=== PATIENT | female | born 1975 | race Caucasian/White ===

== ENCOUNTER → 2017-06-06 | Outpatient (CLI) | payer MEDICAID, SELFPAY | PROVIDERS: Visit Provider Internal Medicine Cardiovascular Disease | DX: I10 Essential (primary) hypertension (principal); E11.9 Type 2 diabetes mellitus without complications | CPT/HCPCS: 36415; 80048 ==

== ENCOUNTER → 2018-01-02 16:16 | Outpatient (CLI) | payer MEDICAID, SELFPAY ==
--- NOTE | 2018-01-02 16:19 | MM_ITS ---
MM Dig screening mamm BI w/CAD CAD Screening COMPARISON: Digital mammograms with CAD 07/26/2014 and post mammotome biopsy left mammogram 10/20/2014 INDICATION: There is no personal or family history of breast cancer. The previous biopsy left breast revealed benign fibrocystic changes including sclerosing adenosis TECHNIQUE: Standard CC and MLO images were obtained. R2 CAD reviewed. FINDINGS: Moderate diffuse fiber glandular densities are seen in both breasts. Again noted is a nodular density left breast at the site of the previous biopsy and there are couple of associated microcalcifications at this site and biopsy clip there is no new or suspicious lesion in either breast and there are no suspicious microcalcifications.. IMPRESSION: Moderate diffuse breast density with minimal post biopsy changes left breast and no suspicious lesion seen BI-RADS Category: 2 Benign Finding(s) RECOMMENDED FOLLOW-UP: 1YR - 1 YEAR FOLLOW-UP (A letter has been sent to the patient regarding results of the study.)
== END ==
PROVIDERS: PCP Nurse Practitioner Family; Visit Provider Nurse Practitioner Family
DX: Z12.31 Encounter for screening mammogram for malignant neoplasm of breast (principal)
CPT/HCPCS: 77067

== ENCOUNTER → 2018-11-17 13:26 | Outpatient (CLI) | payer MEDICAID, SELFPAY ==
--- NOTE | 2018-11-17 13:28 | CA_ITS ---
PROCEDURE: 2-D M-mode and color Doppler study INDICATIONS FOR THE TEST: Chest pain COPD+ Heart Murmur Tobacco Smoking+ Palpitations Fatigue Syncope Edema Hypertension+Diabetes Mellitus+ Rheumatic Fever SOB ENNIS+Obesity Hyperlipidemia+ Family History HD Additional History ABN EKG, FORMER SUBSTANCE ABUSE PATIENT INFORMATION HEIGHT: 66 WEIGHT:147/56 GENDER: Female B/P:270 2-D/M-MODE INTERPRETATION: 2-D MEASUREMENTS OBSERVED VALUES IN CMS Right Ventricular Dimension (RVDd) 1.7 Interventricular Septum (Thickness)(IVsd) 1.3 Left Ventricular Internal Dimensions(LVIDd) 5.4 Left Ventricular Posterior Wall (Thickness)(LVPWd) 1.0 Aortic Root 1.9 Aortic Cusp Separation Left Atrial Dimensions (LAD) 3.9 2D 1. Left Atrium is mildly enlarged, left ventricle is normal size, mild concentric left ventricular hypertrophy, visually estimated ejection fraction 55% with no regional wall motion abnormality. 2. The right atrium and right ventricle are normal size and contractility. 3. The aortic valve is minimally thickened and fibrosed. 4. The mitral and tricuspid valve leaflets are minimally thickened. 5. The pulmonic valve is poorly present. 6. No significant pericardial effusion noted. DOPPLER INTERROGATION: Doppler interrogation of the aortic, mitral and tricuspid valvular presence of mild mitral and tricuspid regurgitation, tricuspid regurgitation jet velocity is inadequate for calculation of the right ventricular systolic pressure, diastolic parameters are inconclusive. CONCLUSION: 1. Technically difficult study because of the patient's factor and poor acoustic windows 2. Mildly enlarged left atrium, normal left ventricular size, mild concentric left ventricular hypertrophy, visually estimated ejection fraction 55% with no obvious regional wall motion abnormality, diastolic parameters are inconclusive. 3. Mild mitral and tricuspid regurgitation 4. No significant pericardial effusion noted.
[2018-11-17 15:31] VITALS: PULSE 88; PULSE 90
== END ==
PROVIDERS: PCP Nurse Practitioner Family; Visit Provider Urology
DX: R06.00 Dyspnea, unspecified (principal); E11.8 Type 2 diabetes mellitus with unspecified complications; E78.5 Hyperlipidemia, unspecified; I11.9 Hypertensive heart disease without heart failure; R60.9 Edema, unspecified; F17.200 Nicotine dependence, unspecified, uncomplicated; Z79.4 Long term (current) use of insulin
CPT/HCPCS: 93306; 94060; 94640; 94726; 94729

== ENCOUNTER → 2018-12-05 13:08 | Outpatient (CLI) | payer MEDICAID, SELFPAY | PROVIDERS: PCP Nurse Practitioner Family; Visit Provider Urology | DX: G47.33 Obstructive sleep apnea (adult) (pediatric) (principal); I10 Essential (primary) hypertension; R06.83 Snoring; R40.0 Somnolence; R53.83 Other fatigue | CPT/HCPCS: G0399 ==

== ENCOUNTER 2018-12-10 08:00 | Outpatient (RCR) | payer MEDICAID, SELFPAY | END 2019-01-13 14:39 | disposition home or self-care (01) | LOC: PT.CARL 08:00 | PROVIDERS: Visit Provider Nurse Practitioner Family | DX: M54.5 Low back pain (principal) | CPT/HCPCS: 97012; 97110; 97140; 97163 ==

== ENCOUNTER → 2019-03-05 12:46 | Outpatient (CLI) | payer MEDICAID, SELFPAY ==
--- NOTE | 2019-03-05 | CA_ITS ---
APPROVED REPORT Bilateral Lower Extremity Venous Study for DVT. Thinner Sprayer: VINICIUS Indications Current Smoker Edema left lower extremity x 1 month. No known trauma. Risk Factors Current Smoker Medications Aspirin 81 mg daily Vein Imaging CFV (L): compressive, spontaneous, phasic, augmentation FEM (L): compressive, spontaneous, phasic, augmentation POP (L): compressive, spontaneous, phasic, augmentation PTV (L): Compressible GSV (L): compressive, spontaneous, phasic, augmentation SSV (L): Compressible Peroneals (L):Compressible GAS (L): Compressible Conclusion Negative for DVT Electronically signed by : Doroteo De La Rosa MD 03/05/2019 16:48:44
== END ==
PROVIDERS: PCP Nurse Practitioner Family; Visit Provider Nurse Practitioner Family
DX: M79.662 Pain in left lower leg (principal)
CPT/HCPCS: 93971

== ENCOUNTER → 2019-10-28 10:53 | Outpatient (CLI) | payer MEDICAID, SELFPAY ==
--- NOTE | 2019-10-28 10:56 | MM_ITS ---
PROCEDURE: MM DIG SCREENING MAMM BI W/CAD Digital Breast Tomosynthesis Included CLINICAL INDICATION: SCREENING There is no personal or family history of breast cancer. There have been previous biopsies on each breast for benign disease. COMPARISON: DMSB DIG MAMM-SCREEN FLORECITA from 07/26/2014 DMDXUL DIG MAMM-DX UNI-LT from 10/20/2014 [facility] MM Dig screening mamm BI w/CAD from 01/02/2018 TECHNIQUE: Standard CC and MLO images and 3D Tomosynthesis was obtained. R2 CAD reviewed. FINDINGS: Moderate diffuse fibroglandular densities are seen throughout both breasts. A couple of benign-appearing microcalcifications left breast. There is a biopsy clip left breast adjacent to the fibroadenoma which was biopsied. There is no new or suspicious lesion in either breast and no suspicious microcalcifications. IMPRESSION: Moderate diffuse breast density with no suspicious lesions seen BI-RAD Category: 2 Benign Finding(s) FOLLOW-UP: 1YR 1 Year Follow-up (A letter has been sent to the patient regarding results of the study.) Dictated by: Dr. Romulo Roy MD 10/30/2019 15:[address] Romulo Roy MD in [place] 10/30/2019 15:16
== END ==
PROVIDERS: PCP Nurse Practitioner Family; Visit Provider Nurse Practitioner Family
DX: Z12.31 Encounter for screening mammogram for malignant neoplasm of breast (principal)
CPT/HCPCS: 77063; 77067

== ENCOUNTER → 2020-11-24 18:13 | Outpatient (CLI) | payer MEDICAID, SELFPAY ==
[2020-11-24 18:20] LABS: Basophils # 0.1 K/mm3 (0-0.2); Basophils % 0.6 % (0.1-2.0); Eosinophils # 0.2 K/mm3 (0.0-0.4); Eosinophils % 1.9 % (0.1-12.0); Hemoglobin 13.8 g/dL (12.2-16.2); Lymphocytes # 3.2 K/mm3 (0.7-4.5); Lymphocytes % 30.1 % (10-50); Mean Corpuscular HGB Conc 32.9 g/dL (31.8-35.4); Mean Corpuscular Volume 85.3 fl (81-99); Mean Platelet Volume 10.2 fl (7.4-10.4); Monocytes # 0.5 K/mm3 (0.1-1.0); Monocytes % 4.7 % (1.7-9.3); Neutrophils # 6.6 K/mm3 (1.8-7.8); Neutrophils % 62.7 % (37.0-80.0); Platelet Count 211 K/mm3 (142-424); Red Blood Count 4.92 M/mm3 (4.20-5.40); Red Cell Distribution Width 15.3 % (11.5-17.5); White Blood Count 10.5 K/mm3 (4.8-10.8)
[2020-11-24 18:30] LABS: Chloride 101 mmol/L (98-107); Potassium 4.5 mmoL/L (3.5-5.1); Sodium 137 mmol/L (136-145)
[2020-11-24 18:33] LABS: Alanine Aminotransferase 40 U/L (12-78); Albumin Level 4.4 g/dl (3.5-5.0); Albumin/Globulin Ratio 1.7 (1.1-1.8); Alkaline Phosphatase 143 U/L (38-126); Anion Gap 12.5 mEq/L (5-15); Aspartate Amino Transferase 73 U/L (14-36); Bilirubin,Total 0.3 mg/dl (0.2-1.3); Blood Urea Nitrogen 4 mg/dl (7-17); Carbon Dioxide 28 mmol/L (22.0-30.0); Cholesterol 169 mg/dl (140-200); Estimated Glomerular Filt Rate 132 ml/min (>60); GFR (African American) 160 ML/MIN (>60); Globulin 2.6 g/dL (1.3-3.2); Triglycerides 272 mg/dl (30-150); VLDL Cholesterol 54 mg/dL (0-40)
[2020-11-24 18:34] LABS: Calcium 8.5 mg/dl (8.4-10.2); Chol/HDL Ratio 3.9 (1-3.5); Glucose 230 mg/dl (74-100); HDL Cholesterol 43 mg/dl (40-60)
[2020-11-24 18:44] LABS: Direct LDL Cholesterol 100.78 mg/dL (100-129)
[2020-11-24 19:03] LABS: Hemoglobin A1C 8.9 % (4.0-6.0)
== END ==
PROVIDERS: Visit Provider Internal Medicine Adolescent Medicine
DX: E11.9 Type 2 diabetes mellitus without complications (principal); E78.2 Mixed hyperlipidemia; E03.9 Hypothyroidism, unspecified; Z79.84 Long term (current) use of oral hypoglycemic drugs
CPT/HCPCS: 80053; 80061; 83036; 84443; 85025

== ENCOUNTER → 2021-03-07 08:06 | Outpatient (CLI) | payer MEDICAID, SELFPAY ==
[2021-03-07 08:55] LABS: Chloride 106 mmol/L (98-107); Potassium 4.1 mmoL/L (3.5-5.1); Sodium 139 mmol/L (136-145)
[2021-03-07 08:57] LABS: Alanine Aminotransferase 30 U/L (12-78); Alkaline Phosphatase 119 U/L (38-126); Aspartate Amino Transferase 62 U/L (14-36); Bilirubin,Total 0.2 mg/dl (0.2-1.3); Blood Urea Nitrogen 4 mg/dl (7-17); Estimated Glomerular Filt Rate 107 ml/min (>60); GFR (African American) 129 ML/MIN (>60)
[2021-03-07 08:58] LABS: Albumin Level 3.8 g/dl (3.5-5.0); Albumin/Globulin Ratio 1.5 (1.1-1.8); Anion Gap 14.1 mEq/L (5-15); Calcium 8.8 mg/dl (8.4-10.2); Carbon Dioxide 23 mmol/L (22.0-30.0); Chol/HDL Ratio 5.4 (1-3.5); Cholesterol 204 mg/dl (140-200); Globulin 2.6 g/dL (1.3-3.2); Glucose 178 mg/dl (74-100); HDL Cholesterol 38 mg/dl (40-60); Total Protein,Serum 6.4 g/dl (6.3-8.2)
[2021-03-07 09:01] LABS: Triglycerides 403 mg/dl (30-150)
[2021-03-07 09:09] LABS: Direct LDL Cholesterol 120.11 mg/dL (100-129)
[2021-03-07 09:29] LABS: Thyroid Stimulating Hormone 4.53 uIU/mL (0.465-4.68)
[2021-03-07 10:05] LABS: Hemoglobin A1C 7.2 % (4.0-6.0)
== END ==
PROVIDERS: Visit Provider Internal Medicine Adolescent Medicine
DX: E11.9 Type 2 diabetes mellitus without complications (principal); E03.9 Hypothyroidism, unspecified; E78.2 Mixed hyperlipidemia
CPT/HCPCS: 80053; 80061; 83036; 84443

== ENCOUNTER → 2022-06-25 06:34 | Outpatient (CLI) | payer MEDICAID, SELFPAY ==
[2022-06-25 18:28] LABS: Microalbumin/Creatinine Ratio 31.1
[2022-06-25 18:31] LABS: Creatinine,Urine Random 210 mg/dL (Not Estab.)
== END ==
PROVIDERS: PCP Family Medicine; Visit Provider Family Medicine
DX: E11.9 Type 2 diabetes mellitus without complications (principal); Z79.84 Long term (current) use of oral hypoglycemic drugs
CPT/HCPCS: 82043; 82570; 83036

== ENCOUNTER → 2023-05-27 23:36 | Outpatient (CLI) | payer MEDICAID, SELFPAY ==
[2023-05-27 17:23] LABS: Alanine Aminotransferase 51 U/L (12-78); Albumin Level 4.6 g/dl (3.5-5.0); Albumin/Globulin Ratio 1.4 (1.1-1.8); Alkaline Phosphatase 168 U/L (38-126); Anion Gap 14.7 mEq/L (5-15); Aspartate Amino Transferase 78 U/L (14-36); Basophils # 0.1 K/mm3 (0-0.2); Basophils % 0.4 % (0.1-2.0); Bilirubin,Total 0.4 mg/dl (0.2-1.3); Blood Urea Nitrogen 8 mg/dl (7-17); Calcium 9.9 mg/dl (8.4-10.2); Carbon Dioxide 25 mmol/L (22.0-30.0); Chloride 101 mmol/L (98-107); Chol/HDL Ratio 4.7 (1-3.5); Cholesterol 228 mg/dl (140-200); Eosinophils # 0.2 K/mm3 (0.0-0.4); Eosinophils % 1.8 % (0.1-12.0); Estimated Glomerular Filt Rate 106 ml/min (>60); GFR (African American) 128 ML/MIN (>60); Globulin 3.2 g/dL (1.3-3.2); Glucose 180 mg/dl (74-100); HDL Cholesterol 49 mg/dl (40-60); Hematocrit 44.8 % (37.0-47.0); Hemoglobin 15.4 g/dL (12.2-16.2); Lymphocytes # 3.7 K/mm3 (0.7-4.5); Lymphocytes % 34.2 % (10-50); Mean Corpuscular HGB Conc 34.4 g/dL (31.8-35.4); Mean Corpuscular Volume 87.2 fl (81-99); Mean Platelet Volume 11.1 fl (7.4-10.4); Monocytes # 0.5 K/mm3 (0.1-1.0); Monocytes % 4.2 % (1.7-9.3); Neutrophils # 6.4 K/mm3 (1.8-7.8); Neutrophils % 59.5 % (37.0-80.0); Platelet Count 223 K/mm3 (142-424); Potassium 4.7 mmoL/L (3.5-5.1); Red Blood Count 5.14 M/mm3 (4.20-5.40); Red Cell Distribution Width 14.2 % (11.5-17.5); Sodium 136 mmol/L (136-145); Total Protein,Serum 7.8 g/dl (6.3-8.2); White Blood Count 10.8 K/mm3 (4.8-10.8)
[2023-05-27 17:32] LABS: Triglycerides 600 mg/dl (30-150)
[2023-05-27 17:34] LABS: Direct LDL Cholesterol 114.86 mg/dL (100-129)
[2023-05-27 17:54] LABS: Hemoglobin A1C 10.4 % (4.0-6.0); Thyroid Stimulating Hormone 2.36 uIU/mL (0.465-4.68)
[2023-05-29 11:24] LABS: HIV Screen 4th Generation wRfx Non Reactive (Non Reactive)
== END ==
PROVIDERS: PCP Nurse Practitioner Family; Visit Provider Nurse Practitioner Family
DX: Z00.00 Encounter for general adult medical examination without abnormal findings (principal); E03.9 Hypothyroidism, unspecified; I10 Essential (primary) hypertension; E11.9 Type 2 diabetes mellitus without complications; Z11.4 Encounter for screening for human immunodeficiency virus [HIV]; Z79.84 Long term (current) use of oral hypoglycemic drugs; Z72.0 Tobacco use
CPT/HCPCS: 80053; 80061; 83036; 84443; 85025; 86703; G0432

== ENCOUNTER → 2023-06-12 11:19 | Outpatient (CLI) | payer MEDICAID, SELFPAY ==
--- NOTE | 2023-06-12 11:23 | MM_ITS ---
PROCEDURE INFORMATION: Exam: MG Bilateral Screening 3D Mammography Exam date and time: 06/12/2023 11:14 AM Age: 48 years old Clinical indication: Screening mammogram TECHNIQUE: Imaging protocol: Bilateral Screening tomosynthesis and 2D mammography including computer-aided detection (CAD) when performed. COMPARISON: 1. MG MM DIG SCREENING MAMM BI W/CAD 10/28/2019 10:57 AM 2. MG [facility] MM Dig screening mamm BI w/CAD 01/02/2018 4:29 PM 3. MG DMDXUL DIG MAMM-DX UNI-LT 10/20/2014 2:54 PM 4. MG DMSB DIG MAMM-SCREEN FLORECITA 07/26/2014 9:39 AM FINDINGS: MAMMOGRAPHY: Breast composition: There are scattered areas of fibroglandular density. Mass: 1.1 cm mass within the slightly lower slightly outer left middle 1/3 should be further assessed with spot views in CC/MLO projection. Ultrasound should also be performed. 0.9 cm mass within the lower inner anterior right breast should be further assessed with spot views in CC/MLO projection. Ultrasound should also be performed. 0.8 cm mass within the slightly upper slightly inner posterior right breast should be further assessed with spot views in CC/MLO projection. Ultrasound should also be performed. Calcifying upper outer left breast mass is unchanged Architectural distortion: No new or suspicious architectural distortion. Calcifications: No new or suspicious calcifications are present Asymmetric density: No new or suspicious asymmetric density is present Skin thickening: None. Axillary adenopathy: None. IMPRESSION: 1. 1.1 cm mass within the slightly lower slightly outer left middle 1/3 should be further assessed with spot views in CC/MLO projection. Ultrasound should also be performed. 2. 0.9 cm mass within the lower inner anterior right breast should be further assessed with spot views in CC/MLO projection. Ultrasound should also be performed. 3. 0.8 cm mass within the slightly upper slightly inner posterior right breast should be further assessed with spot views in CC/MLO projection. Ultrasound should also be performed. ASSESSMENT: BI-RADS category 0: Incomplete-need additional imaging evaluation
== END ==
LOC: RAD 11:20
PROVIDERS: PCP Nurse Practitioner Family; Visit Provider Nurse Practitioner Family
DX: Z12.31 Encounter for screening mammogram for malignant neoplasm of breast (principal)
CPT/HCPCS: 77063; 77067

== ENCOUNTER 2023-08-12 09:32 | Outpatient (CLI) | payer MEDICAID, SELFPAY ==
--- NOTE | 2023-08-12 09:33 | CT_ITS ---
FINAL REPORT TECHNIQUE: Thin section axial images were obtained through the lungs using a low-dose technique per lung cancer screening protocol. Reconstruction images were obtained using the axial data. Exam was performed using dose reduction technique. CLINICAL HISTORY: lung cancer screening current smoker 1.5ppd x35 years COMPARISON: None FINDINGS: CTDLvol: 2.9 DLP: 100.29 Current smoker, 48-year-old female 52 pack year history Lungs: No acute pulmonary abnormality. No suspicious nodules. Lymph nodes: No thoracic lymphadenopathy. Mediastinum: Heart size is normal. Pleura/pericardium: No pleural or pericardial effusion. Other: There is a left breast nodule measuring 12 mm in size. This is responsible for the S designation. IMPRESSION: No suspicious pulmonary nodule or mass. Left breast nodule measuring 12 mm in size. Recommend correlation with mammography for further evaluation. Lung RADS: 1S, for left breast nodule. Recommendation: 12-month follow-up LDCT and correlation with mammography for further evaluation of left breast nodule. Reviewed, Interpreted and Dictated by Buffy Rao MD Transcribed by Kylie Cárdenas Authenticated and [facility]
--- NOTE | 2023-08-12 10:07 | US_ITS ---
PROCEDURE INFORMATION: Exam: US Right Breast, Complete US Left Breast, Complete MG Bilateral Diagnostic Breast Tomosynthesis Exam date and time: 08/12/2023 10:27 AM Age: 48 years old Clinical indication: Patient recalled on the basis of a screening mammogram for further evaluation; Bilateral breasts; masses TECHNIQUE: Imaging protocol: Complete ultrasound of all four quadrants of the right breast and the retroareolar regions, including ultrasound of the axilla when performed. Complete ultrasound of all four quadrants of the left breast and the retroareolar regions, including ultrasound of the axilla when performed. Bilateral Diagnostic tomosynthesis and 2D mammography including computer-aided detection (CAD) when performed. Unilateral or bilateral exam. COMPARISON: MG MM DIG SCREENING MAMM BI W/CAD 06/12/2023 11:14 AM FINDINGS: MAMMOGRAPHY: Digital diagnostic spot compression views of the left lower outer quadrant demonstrates a persistent 1.0 cm mass. Persistent 0.9 cm mass is noted in the superficial aspect of the anterior right lower inner quadrant. 0.8 cm persistent mass lesion is noted in the upper inner posterior right breast ULTRASOUND: Sonographic images of both breasts including the retroareolar regions, all 4 quadrants and the axilla were obtained. Partially calcified fibroadenoma in the left 1 o'clock axis 3 cm from the nipple measures 1.5 x 1.1 x 1.1 cm. 1.1 x 0.6 x 0.5 cm well-circumscribed uniformly hypoechoic ovoid solid mass in the left 4 o'clock axis 3 cm from the nipple most closely corresponds to the mass on mammography. In the left 2 o'clock retroareolar region is a bilobed well-circumscribed hypoechoic solid mass measuring 1.2 x 1.2 x 0.6 cm not well seen on mammography. Minimal subcentimeter cystic change is noted bilaterally. No solid masses in the right breast. The 2 masses on mammography in the right breast are not seen on sonography. No architectural distortion or acoustical shadowing. No skin thickening or axillary adenopathy. IMPRESSION: 1. Mass in the left lower outer quadrant on mammography corresponds to a probably benign solid mass on sonography. Additional solid mass in the left 2 o'clock retroareolar region. Both masses likely reflect benign fibroadenomas. 2. Mammographically detected superficial subcentimeter right lower inner quadrant mass and posterior right upper inner subcentimeter mass are not seen on sonography but are likely benign in etiology. 3. A six-month follow-up diagnostic right mammogram and targeted left breast ultrasound are recommended to ensure stability of bilateral probably benign masses ASSESSMENT: BI-RADS Category 3: Probably benign
== END 2023-08-12 23:59 ==
PROVIDERS: PCP Nurse Practitioner Family; Visit Provider Nurse Practitioner Family
DX: F17.200 Nicotine dependence, unspecified, uncomplicated (principal); Z12.2 Encounter for screening for malignant neoplasm of respiratory organs; R92.8 Other abnormal and inconclusive findings on diagnostic imaging of breast
CPT/HCPCS: 71271; 76641; 77062; 77066; G0279

== ENCOUNTER 2024-02-27 10:13 | Outpatient (CLI) | payer MEDICAID, SELFPAY ==
--- NOTE | 2024-02-27 10:20 | MM_ITS ---
PROCEDURE INFORMATION: Exam: US Left Breast, Complete MG Right Diagnostic Breast Tomosynthesis Exam date and time: 02/27/2024 10:30 AM Age: 49 years old Clinical indication: Short-term radiographic followup; mammographically detected right breast masses and sonographically detected left breast masses TECHNIQUE: Imaging protocol: Complete ultrasound of all four quadrants of the left breast and the retroareolar regions, including ultrasound of the axilla when performed. Right Diagnostic tomosynthesis and 2D mammography including computer-aided detection (CAD) when performed. Unilateral or bilateral exam. COMPARISON: US BREAST LT COMPLETE 08/12/2023 10:39 AM FINDINGS: MAMMOGRAPHY: Breast composition: There are scattered areas of fibroglandular density. Breast mammogram findings: There is no stellate mass, architectural distortion or suspicious microcalcifications to suggest malignancy. Previously noted superficial ovoid mass in the right lower inner quadrant and subcentimeter mass in the posterior right upper inner quadrant are not seen on the current examination. No skin thickening or axillary adenopathy. ULTRASOUND: Breast ultrasound findings: Sonographic images of the left 1 o'clock axis 3 cm from the nipple demonstrates a stable hypoechoic partially calcified fibroadenoma measuring 1.1 x 1.3 x 1.1 cm. Stable hypoechoic ovoid solid mass in the left 4 o'clock axis 3 cm from the nipple measuring 1.0 x 0.8 x 0.7 cm. Stable left hypoechoic ovoid solid mass in the 2 o'clock retroareolar region measuring 1.1 x 0.6 x 1.3 cm. Few scattered subcentimeter cysts are noted. No architectural distortion or acoustic shadowing. No skin thickening or axillary adenopathy. IMPRESSION: 1. Resolution of 2 subcentimeter masses in the right breast. 2. Two stable left breast masses compared to prior sonogram dated 08/12/2023. A six-month follow-up targeted left breast ultrasound is recommended for continued close surveillance. The patient is also due at that time for annual bilateral mammographic screening. ASSESSMENT: BI-RADS Category 3: Probably benign.
== END 2024-02-27 23:59 | disposition home or self-care (01) ==
LOC: RAD 10:14
PROVIDERS: PCP Family Medicine; Visit Provider Family Medicine
DX: R92.8 Other abnormal and inconclusive findings on diagnostic imaging of breast (principal)
CPT/HCPCS: 76641; 77061; 77065; G0279

== ENCOUNTER 2024-10-28 09:58 | Outpatient (CLI) | payer MEDICAID, SELFPAY ==
[2024-10-28 17:04] LABS: Basophils # 0.1 K/mm3 (0-0.2); Basophils % 0.6 % (0.1-2.0); Eosinophils # 0.3 Kmm3 (0.0-0.4); Eosinophils % 2.1 % (0.1-12.0); Hematocrit 44.7 % (37.0-47.0); Hemoglobin 14.1 g/dL (12.2-16.2); Immature Granulocytes # 0.07 10^3uL; Immature Granulocytes % 0.4 %; Lymphocytes # 6.6 K/mm3 (0.7-4.5); Lymphocytes % 40.8 % (10-50); Mean Corpuscular HGB Conc 31.5 g/dL (31.8-35.4); Mean Corpuscular Hemoglobin 28.2 pg (27.0-31.2); Mean Corpuscular Volume 89.4 fl (81-99); Mean Platelet Volume 11.2 fl (7.4-10.4); Monocytes % 6.3 % (1.7-9.3); Neutrophils # 8.1 K/mm3 (1.8-7.8); Neutrophils % 49.8 % (37.0-80.0); Nucleated Red Blood Cells # 0 10^3/uL; Nucleated Red Blood Cells % 0 %; Platelet Count 245 K/mm3 (142-424); Red Cell Distribution Width 14.1 % (11.5-17.5); Red Cell Distribution Width-SD 46.4 fL; White Blood Count 16.3 K/mm3 (4.8-10.8)
[2024-10-28 17:05] LABS: MANUAL DIFFERENTIAL MANUAL DIFFERENTIAL (MANUAL DIFF)
[2024-10-28 17:51] LABS: Creatinine,Urine Random 65 mg/dL (Not Estab.)
[2024-10-28 18:58] LABS: Alanine Aminotransferase 43 U/L (12-78); Albumin Level 4.7 g/dl (3.5-5.0); Alkaline Phosphatase 91 U/L (38-126); Anion Gap 9.1 mEq/L (5-15); Aspartate Amino Transferase 40 U/L (14-36); Bilirubin,Total 0.6 mg/dl (0.2-1.3); Blood Urea Nitrogen 15 mg/dl (7-17); Calcium 9.3 mg/dl (8.4-10.2); Carbon Dioxide 28 mmol/L (22.0-30.0); Chloride 104 mmol/L (98-107); Chol/HDL Ratio 2.4 (1-3.5); Cholesterol 132 mg/dl (140-200); Estimated Glomerular Filt Rate 88 ml/min (>60); GFR (African American) 107 ML/MIN (>60); Globulin 2.3 g/dL (1.3-3.2); Glucose 85 mg/dl (74-100); HDL Cholesterol 54 mg/dl (40-60); Magnesium 2.1 mg/dl (1.6-2.3); Potassium 5.1 mmoL/L (3.5-5.1); Sodium 136 mmol/L (136-145); Triglycerides 243 mg/dl (30-150); VLDL Cholesterol 49 mg/dL (0-40)
[2024-10-28 19:08] LABS: Direct LDL Cholesterol 55.64 mg/dL (100-129)
[2024-10-28 19:51] LABS: Free Thyroxine Index 3.5 ug/dL (5.93-13.13); T4 (Thyroxine) 10.9 ug/dl (5.53-11.0); Triiodothryronine (T3) Uptake 32 % (23.5-40.5)
[2024-10-28 20:04] LABS: Thyroid Stimulating Hormone 2.66 uIU/mL (0.465-4.68)
[2024-10-28 20:20] LABS: Vitamin B12 346 pg/mL (239-931)
[2024-10-28 21:22] LABS: Eosinophils % 2 % (0-3); Lymphocytes % 50 % (10-50); Monocytes % 5 % (2-9); Neutrophils % 43 % (42-76); RBC Morphology Normal; Total Cells Counted 100
[2024-10-28 21:23] LABS: Giant Platelets 1+; Platelet Estimate Normal
[2024-10-29 09:02] LABS: Estradiol <5.0 pg/mL (.); FSH 50.7 mIU/mL (.); LH 33.4 mIU/mL (.)
== END 2024-10-28 23:59 | disposition home or self-care (01) ==
LOC: LAB.DROPOF 10-30 11:50
PROVIDERS: PCP Nurse Practitioner Family; Visit Provider Nurse Practitioner Family
DX: E78.5 Hyperlipidemia, unspecified (principal); I11.9 Hypertensive heart disease without heart failure; E11.8 Type 2 diabetes mellitus with unspecified complications; Z79.4 Long term (current) use of insulin; E03.9 Hypothyroidism, unspecified; E55.9 Vitamin D deficiency, unspecified
CPT/HCPCS: 80053; 80061; 82043; 82306; 82570; 82607; 82670; 83001; 83002; 83735; 84436; 84443; 84479; 85007; 85025; 85027

== ENCOUNTER 2024-12-10 12:59 | Outpatient (POV) | payer MEDICAID, SELFPAY ==
[2024-12-10 13:20] VITALS: BP 180/100; PULSE 108; RESP 18; O2SAT 100; BMI 32.9
--- NOTE | 2024-12-10 13:47 | EXP.PAIN.OV ---
HPI Data of Consult Patient: new to practice Consult date: 12/10/24 Requesting Physician: Mariely Porter APRN Primary Care Provider: Joo Honeycutt MD Reason for consult: Low back pain, knee pain, chronic pain History of present illness: Ms. Thomas is a 49 year old female who presents today as a referral. She is a referral from Julio Thomas's office. She rates her pain today a 6 out of 10. Patient states she has chronic pain throughout her low back primarily the left hip, knees and even her shoulder more prominent along the left side. Patient states this all has been going on for years and progressively worsened. Patient states that she did see our office back in 2014 and we had even done some injections that did do some improvement but then some were more temporary or some aggravated her pain symptoms. Patient does describe her overall pain as a constant burning aching sensation that is worse with increased activity. She does see orthopedics for her knees and has gotten injections. Patient denies any prior surgery. Patient does state that she is trying to get her disability however she has not been seen by any 1 recently so she is trying to get more documentation as well as she denies any recent imaging. She states she has tried [id number] medications along with heat and ice. She denies any physical therapy or chiropractor therapy. Her Jose has been reviewed and is appropriate. Pain at rest (0-10 scale): 6 Has patient had previous pain injection?: No Conservative treatment options previously tried: Home exercise plan (Longer than 6 weeks) cc:: CC: Mariely Porter APRN [facility] Disclaimer: The information contained in this section may have been updated after the patient was seen, as this information can be updated by other users. Medical History DM2 (diabetes mellitus, type 2) Snoring Daytime somnolence Fatigue HTN (hypertension) Abnormal Pap smear of cervix Tobacco dependence syndrome Obstructive sleep apnea syndrome Hyperlipidemia Hypertensive heart disease without heart failure Surgical History History of knee replacement procedure of left knee Family History Mother Stroke Hypertension Diabetes Father Hypertension Cancer Social History (Updated 12/10/24 @ 13:21 by Jovanna Lee RN) Smoking Status: Current every day smoker tobacco type: cigarettes packs per day: 2 second hand exposure: Yes alcohol intake: former substance use type: marijuana, opiates and methamphetamine current occupational status: unemployed Travel in the last 8 weeks?: None household members: significant other housing: apartment Review of Systems Review of Systems Review of systems:: pertinent systems reviewed and negative unless documented below Review of systems (narrative): Review of Systems: General: No recent weight changes, no fever, no sleep disturbances Respiratory: No cough, no shortness of air, no recurring pulmonary infections Cardiovascular/peripheral vascular: No chest pain, no palpitations, no edema, no shortness of breath Gastrointestinal: No new onset incontinence, normal bowel movements reported Genitourinary: No new onset incontinence Musculoskeletal: Low back pain, left hip pain, knee pain, shoulder pain Psychiatric: [Normal mood/affect] Neurological: [Denies weakness in extremities], [denies balance issues] Meds Home Medications and Allergies Home Medications ?Medication ?Instructions ?Recorded ?Confirmed ?Type lancets 30 gauge (OneTouch Delica #100 ea 01/31/22 12/10/24 Rx Plus Lancet) buprenorphine 8 mg-naloxone 2 mg 2 tab sublingual DAILY 02/28/22 12/10/24 History sublingual tablet montelukast 10 mg tablet See Rx Instructions .Route 05/27/23 12/10/24 Rx .COMPLEX #30 tabs blood sugar diagnostic (OneTouch #100 ea 06/12/23 12/10/24 Rx Ultra Test strips) blood-glucose meter (Blood Glucose #1 ea 12/06/23 12/10/24 Rx Monitoring kit) blood sugar diagnostic (OneTouch #50 strips 08/19/24 12/10/24 Rx Ultra Test strips) ipratropium 0.5 mg-albuterol 3 mg See Rx Instructions .Route 08/19/24 12/10/24 Rx (2.5 mg base)/3 mL nebulization .COMPLEX #90 mL soln gabapentin 100 mg tablet 100 mg PO TID #90 tabs 09/10/24 12/10/24 Rx aspirin 81 mg tablet,delayed See Rx Instructions .Route 10/05/24 12/10/24 Rx release .COMPLEX #30 tabs famotidine 20 mg tablet See Rx Instructions .Route 10/05/24 12/10/24 Rx .COMPLEX #60 tabs furosemide 40 mg tablet See Rx Instructions .Route 10/05/24 12/10/24 Rx .COMPLEX #30 tabs levothyroxine 125 mcg tablet See Rx Instructions .Route 10/05/24 12/10/24 Rx .COMPLEX #30 tabs losartan 100 mg tablet See Rx Instructions .Route 10/05/24 12/10/24 Rx .COMPLEX #30 tabs metformin 500 mg tablet,extended See Rx Instructions .Route 10/05/24 12/10/24 Rx release 24 hr .COMPLEX #120 tabs metoprolol succinate 25 mg See Rx Instructions .Route 10/05/24 12/10/24 Rx tablet,extended release 24 hr .COMPLEX #30 tabs mometasone-formoterol HFA 50 mcg-5 See Rx Instructions .Route 10/05/24 12/10/24 Rx mcg/actuation aerosol inhaler .COMPLEX #13 grams (Dulera) oxybutynin chloride 5 mg See Rx Instructions .Route 10/05/24 12/10/24 Rx tablet,extended release 24 hr .COMPLEX #30 tabs rosuvastatin 40 mg tablet 40 mg PO DAILY #90 tabs 10/05/24 12/10/24 Rx spironolactone 25 mg tablet See Rx Instructions .Route 10/05/24 12/10/24 Rx .COMPLEX #90 tabs ondansetron 4 mg disintegrating 4 - 8 mg (1 - 2 x 4 mg) PO BID PRN 10/20/24 12/10/24 Rx tablet nausea and vomiting #20 tabs aripiprazole 5 mg tablet 5 mg PO DAILY 10/28/24 12/10/24 History semaglutide 0.25 mg or 0.5 mg (2 0.5 mg (0.736 mL) SQ WEEKLY #3 mL 10/28/24 12/10/24 Rx mg/3 mL) subcutaneous pen injector (Ozempic) cholecalciferol (vitamin D3) 125 125 mcg PO DAILY #30 caps 10/29/24 12/10/24 Rx mcg (5,000 unit) capsule vitamins with calcium 1 tab PO DAILY #30 tabs 10/29/24 12/10/24 Rx no.72-iron 29 mg-folic acid 1 mg tablet albuterol sulfate 90 mcg/actuation See Rx Instructions .Route 11/13/24 12/10/24 Rx aerosol inhaler (Ventolin HFA) .COMPLEX #18 grams diclofenac sodium 1 % topical gel 4 g topical QID arthritis 6 days 11/13/24 12/10/24 Rx #100 grams meloxicam 15 mg tablet 15 mg PO DAILY #30 tabs 11/13/24 12/10/24 Rx nicotine (polacrilex) 4 mg buccal 4 mg buccal Q6H PRN nicotine 11/13/24 12/10/24 Rx lozenge cravings 30 days #72 ea aripiprazole 2 mg tablet (Abilify) 2 mg PO HS 11/27/24 12/10/24 History duloxetine 20 mg capsule,delayed 20 mg PO BID 11/27/24 12/10/24 History release (Cymbalta) New Prescriptions to Start Prescriptions: Allergies Allergy/AdvReac Type Severity Reaction Status Date / Time levofloxacin (From [employer]) Allergy Unknown Verified 11/27/24 10:15 Objective Vital signs: Pulse Resp BP Pulse Ox O2 Del Method 108 H 18 180/100 H 100 Room Air 12/10/24 13:20 12/10/24 13:20 12/10/24 13:20 12/10/24 13:20 12/10/24 13:20 Narrative: Physical Exam: General: Alert and oriented x3, no acute distress, pleasant and cooperative Lungs: Respirations even and unlabored, symmetrical chest expansion Eyes: PERRL Musculoskeletal: Flexion and extension of lumbar [spine] somewhat guarded secondary to pain, point tenderness along left SI Neurological: Speech clear, no gross sensory deficit Assessment and Plan *Assessment and plan (1) Low back pain: Status: Acute Category: Medical Code(s): M54.50 - Low back pain, unspecified (2) Sacroiliitis: Status: Acute Category: Medical Code(s): M46.1 - Sacroiliitis, not elsewhere classified (3) Knee pain, chronic: Status: Acute Category: Medical Code(s): M25.569 - Pain in unspecified knee; G89.29 - Other chronic pain Plan I did discuss with the patient that we do not do any paperwork for disability however she is more than welcome to have copies of our notes. Patient will be ordered x-ray imaging of her low back as well as proceed forward with advanced imaging since it has been years since she has had any imaging. We will order an MRI without contrast of her lumbar spine. Patient did have some symptoms consistent with left-sided sacroiliitis during today's visit. We will monitor this in future. I will also go ahead and order the patient 6 weeks physical therapy of the chronic low back pain. Patient will return to clinic in 1 month for reevaluation of symptoms and plan of care. Patient has been instructed to contact the clinic with any concerns before the next appointment. Dr. Marin has reviewed this note and agrees with this plan of care. This note was dictated using voice recognition software and make contain errors or omissions. All injections are used with Lidocaine, Bupivacaine and dexamethasone. Occasionally urine drug screen is needed to verify patient's compliance with our office pain contract. This is ordered based off specific treatments related to chronic pain with the potential to abuse certain medications.
== END 2024-12-10 23:59 | disposition home or self-care (01) ==
PROVIDERS: PCP Family Medicine; Visit Provider Nurse Practitioner Family
DX: M46.1 Sacroiliitis, not elsewhere classified (principal); M25.562 Pain in left knee; G89.29 Other chronic pain
CPT/HCPCS: 99202; G0463